=== PATIENT | female | born 1980 | race Caucasian/White ===

== ENCOUNTER → 2024-02-16 15:44 | Outpatient (REF) | payer BC, SELFPAY | LOC: WDC 15:44 | PROVIDERS: ATTENDING PHYSICIAN Obstetrics & Gynecology; FAMILY PHYSICIAN Family Medicine | DX: Z12.31 Encounter for screening mammogram for malignant neoplasm of breast (principal) | CPT/HCPCS: 77063; 77067 ==

== ENCOUNTER → 2024-08-23 11:57 | Outpatient (REF) | payer BC, SELFPAY | LOC: MRI 3T 11:57 | PROVIDERS: ATTENDING PHYSICIAN Psychiatry & Neurology Psychiatry | DX: K50.819 Crohn's disease of both small and large intestine with unspecified complications (principal) | CPT/HCPCS: 72197; 74183; A9575 ==

== ENCOUNTER → 2025-02-16 15:35 | Outpatient (REF) | payer BC, SELFPAY | LOC: WDC 15:35 | PROVIDERS: ATTENDING PHYSICIAN Family Medicine | DX: Z12.31 Encounter for screening mammogram for malignant neoplasm of breast (principal) | CPT/HCPCS: 77063; 77067 ==

== ENCOUNTER 2025-06-11 05:49 | Day surgery (SDC) | payer BC, SELFPAY ==
[2025-06-11 06:07] VITALS: BMI 20.9
[2025-06-11 06:19] VITALS: BMI 20.9
[2025-06-11 06:25] VITALS: BP 114/79
[2025-06-11] MEDS: TYLENOL 1000 MG PO (06:29)
[2025-06-11] MEDS: HEPARIN 5000 UNITS SC (06:32)
[2025-06-11] MEDS: NORMOSOL-R/PLASMALYTE-A 1000 IV (06:45)
[2025-06-11 08:07] VITALS: BP 94/61
--- NOTE | 2025-06-11 08:09 | OR.RPT ---
Addendum entered and electronically signed by Roberto Dangelo MD 06/11/25 09:40:
The assistance of Vida BOCANEGRA was required due to the complexity of the procedure. During the procedure she assisted with retraction, visualization, and closure of the wound.
Original Note:
Operative Report
Operative Report
Primary Surgeon: Antolin
Assisting: Vida BOCANEGRA
Pre-op Diagnosis: Umbilical mass
Post-op Diagnosis: Umbilical hernia
Procedure Performed: Open primary repair umbilical hernia
Anesthesia Type: MAC local
Specimen / Cultures: Umbilical mass
Estimated Blood Loss: 3cc
Complications: None immediate
Operative Findings: 5mm umbilical defect closed with 2-0 PDS suture. Stalk and mass excised en bloc and sent for path, suspect this is simply scar tissue.
Date of Surgery: 06/11/25
Indications: This 45F developed a symptomatic nodule at her umbilcus. No definitive evidence of umbilical hernia wa identified on cross sectional imaging. Excision of umbilical mass and possible repair umbilical hernia was elected.
PROCEDURE: After informed consent was obtained, the patient was brought to the operative suite and placed supine on the operating table. The patient was sedated, prepped and draped in the usual sterile manner and an adequate local anesthetic was
administered using lidocaine with epi.
A standard curvilinear umbilical incision was made, and dissection was carried down to the fascia using a combination of Metzenbaum scissors and Bovie electrocautery. The hernia was encircled by tunneling through the subcutaneous fat at the level of
the fascia using metzenbaum scissors, and the umbilical stalk and mass were excised and passed off the table as specimen. A fascial defect was identified, it was noted to measure 5mm. The fascia was cleared circumferentially of any adherent tissue
for a distance of 2cm from the defect. The defect was then closed using a running 2-0 PDS suture. The umbilicus was then reconstructed using 3-0 Vicryl. The skin was approximated with 3-0 Vicryl deep dermal interrupted sutures and 4-0 monocryl
suture in a subcuticular fashion. Topical skin glue was then applied. All surgical counts were reported as correct.
The patient tolerated the procedure well and was taken to the PACU in stable condition.
[2025-06-11 08:15] VITALS: BP 95/65
[2025-06-11 08:30] VITALS: BP 108/89
[2025-06-11] MEDS: ROXICODONE 5 MG PO (08:36)
[2025-06-11 08:45] VITALS: BP 121/77
[2025-06-11 09:00] VITALS: BP 118/75
== END 2025-06-11 09:35 | disposition home or self-care (01) ==
LOC: SDS 05:49
PROVIDERS: ATTENDING PHYSICIAN Surgery
DX: N80.C2 Endometriosis of the umbilicus (principal)
CPT/HCPCS: 49591; 88304